=== PATIENT | male | born 1995 | race African-American/Black ===

== ENCOUNTER 2017-10-06 19:12 | Observation (INO) | payer OTHER, SELFPAY ==
[2017-10-06 19:46] LABS: #Basophils 0.1 thou/uL (0.0-0.2); #Lymphocytes 3.1 thou/uL (1.20-3.40); #Monocytes 0.8 thou/uL (0.11-0.59); %Eosinophils 0.5 % (0.0-10.0); %Lymphocytes 34.1 % (21.0-51.0); %Monocytes 8.9 % (0.0-10.0); %Neutrophils 55.4 % (42.0-75.0); Mean Corpuscular HGB CONC 33.2 g/dL (32.0-36.0); Mean Corpuscular Hemoglobin 28.6 pg (27.0-31.0); Mean Corpuscular Volume 86.2 fL (78.0-98.0); Platelet Count 234 thou/uL (130-400); RBC Distribution Width 13.2 % (11.5-14.5); Red Blood Cell (RBC) Count 4.56 mill/uL (4.70-6.10)
[2017-10-06 20:08] LABS: ALT (SGPT) 23 U/L (8-55); AST (SGOT) 52 U/L (5-34); Albumin 4.2 g/dL (3.5-5.0); Alkaline Phosphatase 64 U/L (40-150); Anion Gap 17 mmol/L (10-20); BUN (Urea Nitrogen) 8 mg/dL (8.9-20.6); Bilirubin, Total 0.5 mg/dL (0.2-1.2); Calc. Creatinine Clearance 0 mL/min (70-130); Calcium 9.3 mg/dL (7.8-10.44); Carbon Dioxide 22 mmol/L (22-29); Chloride 106 mmol/L (98-107); Estimated GFR-MDRD Greater than 90; Globulin 2.6 g/dL (2.4-3.5); Glucose 90 mg/dL (70-105); Potassium 3.7 mmol/L (3.5-5.1); Protein, Total 6.8 g/dL (6.0-8.3); Sodium 141 mmol/L (136-145)
[2017-10-06 20:12] LABS: Troponin I Less than 0.010 ng/mL (< 0.028)
[2017-10-06 23:30] LABS: Troponin I Less than 0.010 ng/mL (< 0.028)
[2017-10-07] MEDS ORDERED: Acetaminophen 325 MG TAB PO PRN (00:12)
[2017-10-07] MEDS ORDERED: Ondansetron PF 4 MG/2 ML Vial IVP PRN (00:12)
[2017-10-07 02:16] VITALS: BMI 20.7
[2017-10-07 02:35] LABS: Troponin I Less than 0.010 ng/mL (< 0.028)
[2017-10-07 03:20] LABS: #Basophils 0.1 thou/uL (0.0-0.2); #Eosinphils 0.1 thou/uL (0.0-0.7); #Lymphocytes 3.1 thou/uL (1.20-3.40); #Monocytes 0.6 thou/uL (0.11-0.59); #Neutrophils 4.2 thou/uL (1.40-6.50); %Basophils 1.2 % (0.0-1.0); %Eosinophils 0.9 % (0.0-10.0); %Lymphocytes 38.2 % (21.0-51.0); %Monocytes 7.6 % (0.0-10.0); Hemoglobin 13.2 g/dL (14.0-18.0); Mean Corpuscular HGB CONC 34.5 g/dL (32.0-36.0); Mean Corpuscular Hemoglobin 29.9 pg (27.0-31.0); Mean Corpuscular Volume 86.5 fL (78.0-98.0); Mean Platelet Volume 7.3 fL (7.4-10.4); Platelet Count 224 thou/uL (130-400); RBC Distribution Width 13.2 % (11.5-14.5); Red Blood Cell (RBC) Count 4.43 mill/uL (4.70-6.10)
[2017-10-07 03:41] LABS: Anion Gap 17 mmol/L (10-20); BUN (Urea Nitrogen) 8 mg/dL (8.9-20.6); Calc. Creatinine Clearance 108 mL/min (70-130); Calcium 9.7 mg/dL (7.8-10.44); Carbon Dioxide 20 mmol/L (22-29); Chloride 108 mmol/L (98-107); Estimated GFR-MDRD Greater than 90; Glucose 119 mg/dL (70-105); Potassium 4.4 mmol/L (3.5-5.1); Sodium 141 mmol/L (136-145)
[2017-10-07] MEDS: Aspirin 325 MG TAB PO SCH (08:21)
[2017-10-07] MEDS: Enoxaparin Sodium 40 MG/0.4 ML SYRINGE SC SCH (08:22)
[2017-10-07 11:37] LABS: Amphetamine Not Detected (NotDetected); Barbiturates Screen Not Detected (NotDetected); Benzodiazepine Screen Detected (NotDetected); Cocaine Metabolite Screen Not Detected (NotDetected); Medtox Control Line Valid? VALID (VALID); Medtox Reader # READER 4; Methadone Not Detected (NotDetected); Methamphetamine Not Detected (NotDetected); Opiate Screen Not Detected (NotDetected); Oxycodone Screen Not Detected (NotDetected); Phencyclidine (PCP) Not Detected (NotDetected); THC/Cannabinoid Screen Detected (NotDetected); Tricyclic Screen Not Detected (NotDetected)
[2017-10-07] MEDS ORDERED: ALPRAZolam 0.25 MG TAB PO PRN (12:13)
--- NOTE | 2017-10-07 12:51 | HP ---
DATE OF ADMISSION: 10/07/2017 CHIEF COMPLAINT: Chest discomfort. PRIMARY CARE PHYSICIAN: None. HISTORY OF PRESENTING ILLNESS: Mr. Guevara is a 22-year-old male who is currently in care home, presented to the emergency room with the above-mentioned complaint. History is mainly obtained by the patient himself and electronic medical records have been reviewed. Initially, Mr. Guevara presented to [facility] on 10/05/2017 for complaints of anxiet y-like symptoms. Upon presentation at that time, he was tachycardic with the pulse of 131 with blood pressure of 141/84. He underwent examination by the emergency room physician, which diagnosed him w ith drug abuse and gave him Haldol and Ativan and discharged him. He came back to the emergency room in [place] yesterday again for complaints of anxiety, it seem s like. At this time, it seems like an EKG was done which showed T-wave inversion in lead V1-V5. Ap parently, the EKG done prior to that 2 days ago in [place] did not have the same changes. For t his reason, he was transferred to [facility]. In our emergency room, he was hemodynamically stable and complains of chest pain and chest pressure. He reported that he was apprehended by police few days ago and was tased and since then he has been having these symptoms. In our emergency room, EKG was repeated which did not show any significant ch anges. There were some reports of him having questionable junctional rhythm when his heart rate drop ped down to the 40s. He was given aspirin and is now being admitted to the hospital for further eval uation and care. Chest x-ray was unremarkable. He describes his chest pain as a pressure-like sensation located at the center of the chest, going to the right side associated with neck pain, headache as well as shortness of breath and some dizziness . He was found to be hyperventilating in the ER as well as tachycardic. PAST MEDICAL HISTORY: History of asthma, which the patient states is under control and he does not n eed to take any inhalers. PAST SURGICAL HISTORY: No surgical history reviewed with the patient. PSYCHIATRIC HISTORY: He himself denies any anxiety or depression. SOCIAL HISTORY: He currently uses drugs and has used marijuana about 2 weeks ago he says. He denies any cocaine or IV drug abuse. He denies any methamphetamine abuse. He smokes half to 1 pack of cig arettes daily and is currently in care home. He denies any heavy alcohol abuse. FAMILY HISTORY: He states that his mother had been diagnosed with some sort of heart disease, but he could not tell me exactly what. She is still alive and healthy. ALLERGIES: No known medication allergies. CURRENT MEDICATIONS: None. REVIEW OF SYSTEMS: A 12-point review of system is done, which is negative except for those mentioned in the history and physical. LABORATORY DATA: His CBC shows hemoglobin of 13, otherwise unremarkable. Serum chemistries unremark able. Cardiac enzymes were trended and negative x3. His urine drug screen is positive for benzodiaz epines and cannabinoids. IMAGING: A 12-lead EKG is reviewed by myself and I discussed this briefly with on-call fire control system installer, Dr. Ragland as well. It seems like sinus rhythm for now without any acute ST or T-wave changes. PHYSICAL EXAMINATION: VITAL SIGNS: Most recent vital signs, temperature 98.7, pulse of 57-93, respirations 16, saturating 100% on room air, blood pressure 126/69. GENERAL: No acute distress, awake, alert, oriented x3. [employer] officers are in the room with him. HEENT: Mucous membrane is moist and pink. No oropharyngeal exudate or erythema. Head is normocepha lic, atraumatic. Pupils equal, reactive to light and accommodation. Extraocular movement intact. NECK: Supple without any lymphadenopathy, JVD or bruit. CHEST: Clear to auscultation without any wheezing, rales or rhonchi. Rate and rhythm is regular wit hout any murmur, rubs or gallops. ABDOMEN: Soft, nontender, nondistended with positive bowel sounds. EXTREMITIES: Free of any cyanosis, clubbing, or edema. NEUROLOGIC: Nonfocal. SKIN: Free of any rashes or bruises. I feel warm and dry to touch. PSYCHIATRIC: Appears anxious. IMPRESSION AND PLAN: 1. Chest pain. The patient's cardiac enzymes are negative and his repeat EKG is unremarkable. He h as been on telemetry monitoring and his heart rate would drop down to 50s, but he remains asymptomati c. An echocardiogram has been ordered. We will check lipid panel as well. Continue full dose aspir in for now. The likelihood of ACS is very low. The patient did get tased about 4-5 days ago and the re is a possibility he has been having some neuropathic pain because of that. He is otherwise hemody namically stable. He will be admitted on observation status for further workup. 2. History of asthma, currently stable, not on any medications. DISPOSITION: Mr. Guevara is being admitted in the hospital for chest pain workup. He will be treated for anxiety meanwhile. Further management will depend upon his clinical course and the results of t he echocardiogram.
[2017-10-07 14:25] LABS: Cardiac Risk 2.2 (Less than 4.5)
[2017-10-08 08:34] LABS: #Basophils 0.1 thou/uL (0.0-0.2); #Eosinphils 0.1 thou/uL (0.0-0.7); #Lymphocytes 2.3 thou/uL (1.20-3.40); #Monocytes 0.5 thou/uL (0.11-0.59); #Neutrophils 3.6 thou/uL (1.40-6.50); %Basophils 1.1 % (0.0-1.0); %Eosinophils 1.1 % (0.0-10.0); %Lymphocytes 35.2 % (21.0-51.0); %Monocytes 8.1 % (0.0-10.0); %Neutrophils 54.5 % (42.0-75.0); Hemoglobin 14.7 g/dL (14.0-18.0); Mean Corpuscular HGB CONC 33.1 g/dL (32.0-36.0); Mean Corpuscular Hemoglobin 28.4 pg (27.0-31.0); Mean Corpuscular Volume 85.7 fL (78.0-98.0); Mean Platelet Volume 6.8 fL (7.4-10.4); Platelet Count 249 thou/uL (130-400); RBC Distribution Width 13.2 % (11.5-14.5); Red Blood Cell (RBC) Count 5.17 mill/uL (4.70-6.10); White Blood Cell (WBC) Count 6.6 thou/uL (4.8-10.8)
[2017-10-08 08:51] LABS: Anion Gap 14 mmol/L (10-20); BUN (Urea Nitrogen) 9 mg/dL (8.9-20.6); Calc. Creatinine Clearance 104 mL/min (70-130); Calcium 10.2 mg/dL (7.8-10.44); Carbon Dioxide 26 mmol/L (22-29); Chloride 104 mmol/L (98-107); Estimated GFR-MDRD Greater than 90; Glucose 84 mg/dL (70-105); Potassium 3.7 mmol/L (3.5-5.1); Sodium 140 mmol/L (136-145)
[2017-10-08] MEDS: Enoxaparin Sodium 40 MG/0.4 ML SYRINGE SC SCH (09:51)
[2017-10-08] MEDS: Aspirin 325 MG TAB PO SCH (09:51)
[2017-10-08 12:41] VITALS: BP 131/78; TEMP 98.6
--- NOTE | 2017-10-08 19:19 | DIS ---
PRIMARY CARE PROVIDER: None. DATE OF ADMISSION: 10/07/2017 DATE OF DISCHARGE: 10/08/2017 DISCHARGE DIAGNOSIS: Chest pain. CONDITION OF PATIENT ON THE DAY OF DISCHARGE: Stable. I assessed Mr. Guevara on the day of discharge. He reports chest pain is better. Vital signs are stable. S1 and S2 are heard, regular. Lungs are clear to auscultation bilaterally. He has reproducible tenderness over the lower sternum. HOSPITAL COURSE: Mr. Guevara is a pleasant 22-year-old gentleman, who was admitted to [facility] for chest pain on 10/07/2017. Please refer Dr. Ellington's history and physical note dated 10/07/2017 for further details. He had normal troponins. He also had a 2D echocardiogram, which showed left ventricular ejection fraction of 50% to 55% and normal right ventricular size and function. He also had a D-dimer that was less than 0.27. During this hospitalization, he had triglycerides 55, cholesterol 130, LDL cholesterol 59, HDL cholesterol 60. On the day of discharge, he has normal basic metabolic profile, and unremarkable CBC. His chest pain improved during this hospitalization, most likely musculoskeletal. He is being discharged home in a stable condition. Discharge medications: None DISCHARGE DESTINATION: Home. [facility]
--- NOTE | 2017-10-20 10:51 | EKG ---
Test Reason : Blood Pressure : / mmHG Vent. Rate : 063 BPM Atrial Rate : 063 BPM P-R Int : 142 ms QRS Dur : 076 ms QT Int : 438 ms P-R-T Axes : 038 068 081 degrees QTc Int : 448 ms Sinus rhythm with marked sinus arrhythmia Minimal voltage criteria for LVH, may be normal variant Borderline ECG Confirmed by REECE MALDONADO DO ([id number]), non linear editor AMARILIS LOPEZ ([id number]) on 10/20/2017 10:51:19 AM Referred By: Confirmed By:REECE MALDONADO DO
== END 2017-10-08 14:15 | disposition home or self-care (01) ==
LOC: ERS 19:12 → 2SW 21:00
PROVIDERS: ADMIT Hospitalist; ATTEND Hospitalist
DX: R07.9 Chest pain, unspecified (principal); F17.210 Nicotine dependence, cigarettes, uncomplicated
CPT/HCPCS: 36415; 80048; 80061; 80306; 84484; 85025; 85379; 90471; 90732; 93005; 93306; 94760; 96372; 99406; G0009; G0378; J1650